=== PATIENT | male | born 1985 | race Caucasian/White ===

== ENCOUNTER 2025-03-11 09:45 | Day surgery (SDC) | payer OTHER ==
[~2025-03-11] VITALS: Ht 188 cm; Wt 95.7 kg
[~2025-03-11 09:45] MED LIST: AMIT25TA19 PO; LIDOCAINE 2% 100 MG/5 ML SDV (FOR ANES.) As Ordered ONE; MONT10TA97 PO; ONDANSETRON 4MG 2ML VIAL As Ordered ONE; PROA1AER2 IN; ROCURONIUM BROMIDE 50MG/5ML VIAL As Ordered ONE; SUGAMMADEX SODIUM 500 MG/5 ML VIAL As Ordered ONE; dexAMETHasone 4 MG/ML 1 ML VIAL As Ordered ONE
[2025-03-11] MEDS ORDERED: MIDAZOLAM INJ 2 MG/2 ML VIAL As Ordered ONE (11:50)
[2025-03-11] MEDS: OXYMETAZOLINE 0.05% NASAL SPRAY As Ordered ONE (12:21)
[2025-03-11] MEDS: LIDOCAINE W/EPINEPHrine 1% 20 ML VIAL As Ordered ONE (12:21)
[2025-03-11] MEDS: METHYLENE BLUE 0.5% (5 MG/ML) 10 ML AMP As Ordered ONE (12:21)
[2025-03-11] MEDS ORDERED: ACETAMINOPHEN 1000MG/100ML IV BAG As Ordered ONE (12:23)
[2025-03-11] MEDS ORDERED: LR 1,000 ML IV SCH (13:05)
[2025-03-11] MEDS ORDERED: diphenhydrAMINE 50 MG/ML VIAL IV PRN (13:05)
[2025-03-11] MEDS ORDERED: HYDROMORPHONE HCL 0.5 MG/0.5 ML SYRINGE IV PRN (13:05)
[2025-03-11 14:00] VITALS: BP 121/71; TEMP 96.8; O2SAT 98
== END 2025-03-11 14:18 | disposition home or self-care (01) ==
LOC: M SDC 09:45
PROVIDERS: ATTEND Otolaryngology
DX: J34.3 Hypertrophy of nasal turbinates (principal); J34.2 Deviated nasal septum; K21.9 Gastro-esophageal reflux disease without esophagitis; R06.02 Shortness of breath; G43.909 Migraine, unspecified, not intractable, without status migrainosus; F17.210 Nicotine dependence, cigarettes, uncomplicated; Z79.51 Long term (current) use of inhaled steroids; Z79.899 Other long term (current) drug therapy
CPT/HCPCS: 30140; 30520; J0131; J1100; J2250; J2405; J3010; Q9968

== ENCOUNTER → 2025-05-13 | Outpatient (CLI) | payer OTHER ==
[~2025-05-13] MED LIST changes: -LIDOCAINE 2% 100 MG/5 ML SDV (FOR ANES.) As Ordered ONE; +METHACHOLINE KIT (6 VIAL.NEB PREMIX) INH ONE; -ONDANSETRON 4MG 2ML VIAL As Ordered ONE; -ROCURONIUM BROMIDE 50MG/5ML VIAL As Ordered ONE; -SUGAMMADEX SODIUM 500 MG/5 ML VIAL As Ordered ONE; -dexAMETHasone 4 MG/ML 1 ML VIAL As Ordered ONE
== END ==
LOC: M CARPUL 08:27
PROVIDERS: ATTEND Physician Assistant
DX: R06.00 Dyspnea, unspecified (principal)